=== PATIENT | male | born 1945 | race Caucasian/White ===

== ENCOUNTER → 2023-02-22 09:05 | Outpatient (BNVA) | payer OTHER, SELFPAY | PROVIDERS: PCP Internal Medicine; Visit Provider Nurse Practitioner Family | DX: Z13.89 Encounter for screening for other disorder (principal) ==

== ENCOUNTER 2024-01-10 11:43 | Outpatient (AMB) | payer OTHER, SELFPAY ==
--- NOTE | 2024-01-10 11:45 | MHC.OFFVIS ---
Intake Vital Signs 01/10/24 11:58 Height 6 ft 1 in Weight 184 lb 4 oz BMI 24.3 BP 112/64 Blood Pressure Location Rt brachial Position Sitting Pulse 97 Pulse Source Pulse Oximeter Pulse Oximetry (%) 74 L Oxygen Delivery Method Room Air Intake Visit Reasons: Follow up-Confirmed Intake Note: Patient presents for f/u. Last couple of weeks he has been off and has been falling often. more incontinence. more forgetful and not aware whats going on Allergies No Known Allergies Allergy (Verified 01/10/24 11:51) HPI HPI Comments History of Present Illness Details 77 y/o male patient presents for follow up of dementia, seizure and ABDIRASHID on CPAP. Pt is accompanied by his son. Pt's son reports that patient was more confused lately. Pt moved to [facility] living in August, and his cognitive function has more declined since then. He got a phone call from [facility] living three weeks ago, and got a report patient was very confused, standing in the hallway with only boxer on. Pt's son noticed that he did not take his medication about 5 days. Pt also had frequent falls lately. He had ER visit last week because he fell and hit his head. CT results was no acute abnormalities. Urine test was normal. However, he is having urinary incontinence, and has urology appointment this week. Pt's son reports patient did not have breakthrough seizure. His last seizure was 15 years ago. He is on phenytonin 400 mg daily. Pt tried to have a repeat neuropsychology evaluation, but he was discharged due to non compliant for Dr's treatment. He is on memantine ER 28 mg daily, no side effect noted. Pt drinks couple of glasses of wine weekly, reduced smoking cigarettes. His last sleep study was in 2015. Repeat sleep study ordered but he did not have sleep study yet. Pt does not want to use CPAP. Pt's bilateral hands tremor is stable. [facility] Medical History Bladder cancer COPD (chronic obstructive pulmonary disease) Subdural hematoma Surgical History Hx of colonoscopy History of back surgery Hx of cardiac catheterization Hx of craniotomy Hx of tonsillectomy Family History Father [place] (myocardial infarction) Mother No problems noted. Social History (Updated 01/10/24 @ 11:57 by Lakisha Antunez [facility]) Household Members: Spouse Alcohol intake: former Patient Tobacco Use Status: Current everyday Tobacco user Review of Systems Const All systems reviewed & are unremarkable except as noted in HPI and below ENT Reports Normal hearing present Neuro Reports Normal hearing present Physical Exam Vital Signs: Last Vital Signs Pulse 97 01/10/24 11:58 BP 112/64 01/10/24 11:58 Pulse Ox 74 L 01/10/24 11:58 Oxygen Delivery Method Room Air 01/10/24 11:58 BMI result Body Mass Index 24.3 Const General: cooperative and no acute distress Nutritional Appearance: average body habitus Orientation/consciousness: patient oriented x3 Neck Neck: Yes full ROM and Yes supple Resp Effort & Inspection: normal respiratory effort, able to speak in complete sentences and Actively coughing Neuro General: patient oriented x3 and moves all extremities Cranial nerves: Yes Bilaterally intact EOM present, Yes Normal facial strength present, Yes Midline tongue present, Yes Symmetric palate elevation present, Yes Normal hearing present, Yes Ability to bilaterally rotate head present and Yes Ability to bilaterally elevate shoulders present Cognition (Neuro): normal cognition Gait exam (Neuro): Normal gait present (slightly stoop, good stride and steady gait. ) Motor exam (neuro): 5/5 motor strength present throughout, Pronator motor function not present and Other motor observations present (bilateral hands moderate action tremor. ) Psych Appearance: grossly normal Mental Status: mental status grossly normal Affect: normal affect Attitude: cooperative Assessment & Plan Assessment & Plan (1) Dementia: Comment: Vascular, mild to moderate Code(s): F03.90 - Unspecified dementia, unspecified severity, without behavioral disturbance, psychotic disturbance, mood disturbance, and anxiety (2) Frequent falls: Code(s): R29.6 - Repeated falls (3) Urinary incontinence: Code(s): R32 - Unspecified urinary incontinence (4) Seizure: Code(s): R56.9 - Unspecified convulsions Plan Continue to take memantine ER 28 mg daily for dementia. Continue phenytoin 400 mg q HS for seizure as patient experiences good clinical effect. Recent lab result requested from [facility]. Encouraged patient smoking cessation and reduce his daily alcohol consumption. Advised patient to undergo brain MRI to assess frequent falls, cognitive function decline and urinary incontinence. Orders: Orders MR head/brain wo con 01/10/24 F03.90 - Unspecified dementia, unspecified severity, without behavioral disturbance, psychotic disturbance, mood disturbance, and anxiety, R29.6 - Repeated falls, R32 - Unspecified urinary incontinence Coding Level of Care Code Est Pt Level 4 (06075) Diagnoses Dementia F03.90 Frequent falls R29.6 Urinary incontinence R32 Seizure R56.9
[2024-01-10 11:58] VITALS: BP 112/64; PULSE 97; O2SAT 74; BMI 24.3
== END 2024-01-10 12:30 | disposition home or self-care (01) ==
PROVIDERS: PCP Internal Medicine; Visit Provider Nurse Practitioner Family
DX: F03.90 Unspecified dementia, unspecified severity, without behavioral disturbance, psychotic disturbance, mood disturbance, and anxiety (principal); R29.6 Repeated falls; R32 Unspecified urinary incontinence; R56.9 Unspecified convulsions
CPT/HCPCS: 99214

== ENCOUNTER → 2024-01-10 11:43 | Outpatient (BNVA) | payer OTHER, SELFPAY | PROVIDERS: PCP Internal Medicine; Visit Provider Nurse Practitioner Family ==

== ENCOUNTER 2024-03-07 16:24 | Outpatient (REF) | payer OTHER, SELFPAY ==
--- NOTE | ~2024-03-07 | CT_ITS ---
EXAMINATION: CT head/brain wo IV con CLINICAL INFORMATION: Reason for Exam R29.6 - Repeated falls COMPARISON: None available TECHNIQUE: Contiguous axial imaging was performed from the skull base to vertex without intravenous contrast. Sagittal and coronal reformatted images were obtained. This CT examination was performed using dose optimization techniques as appropriate, variously including the following: * Automated exposure control * Adjustment of mA and/or kV according to patient size (this includes techniques or standardized protocols for targeted exams where dose is matched to indication/reason for exam; i.e. extremities or head) Use of iterative reconstruction technique DLP: 948 mGy-cm FINDINGS: Prior left parietal craniotomy with underlying encephalomalacia/gliosis in the left anterior temporal lobe. Surgical/aneurysm clips are noted. There is ex vacuo dilatation of the left lateral ventricle temporal horn. Encephalomalacia/gliosis in the left parietal/occipital lobes. No acute intracranial hemorrhage or territorial loss of roy-white differentiation. Generalized cerebral volume loss with associated ventricular and sulcal prominence. Confluent periventricular and subcortical white matter hypodensity is nonspecific but may represent severe chronic microvascular ischemic change. Scattered mild to moderate ethmoid air cell mucosal thickening. The mastoid air cells are well-aerated. CT/CT head/brain wo IV con IMPRESSION: Left-sided craniotomy with underlying encephalomalacia/gliosis in the left anterior temporal lobe. 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 Extensive white matter hypodensity is nonspecific and may represent severe chronic microvascular ischemic change. No acute intracranial hemorrhage or territorial loss of roy-white differentiation.
== END 2024-03-07 16:25 | disposition home or self-care (01) ==
LOC: HO.CT 16:24
PROVIDERS: PCP Internal Medicine; Visit Provider Nurse Practitioner Family
DX: R29.6 Repeated falls (principal); R32 Unspecified urinary incontinence; F03.90 Unspecified dementia, unspecified severity, without behavioral disturbance, psychotic disturbance, mood disturbance, and anxiety
CPT/HCPCS: 70450

== ENCOUNTER 2024-03-13 10:05 | Outpatient (AMB) | payer OTHER, SELFPAY ==
--- NOTE | 2024-03-13 10:10 | A.OFFVIS_ITS ---
Vital Signs 03/13/24 10:20 Height 6 ft 1 in Weight 181 lb 8 oz BMI 23.9 BP 122/74 Blood Pressure Location Rt brachial Position Sitting Pulse 67 Pulse Source Pulse Oximeter Pulse Oximetry (%) 97 Oxygen Delivery Method Room Air Intake Visit Reasons: 2 month FU - Confirmed Intake Note: Patient presents for 2 months f/u. A lot more confusion since UTI for about a month and a lot more incontinence. Allergies No Known Allergies Allergy (Verified 03/13/24 10:17) HPI Comments Details: 78 y/o male patient presents for follow up of dementia, seizure and ABDIRASHID on CPAP. Pt is accompanied by his son. CT result reviewed. Left-sided craniotomy with underlying encephalomalacia/gliosis in the left anterior temporal lobe. 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 Extensive white matter hypodensity is nonspecific and may represent severe chronic microvascular ischemic change. No acute intracranial hemorrhage or territorial loss of roy-white differentiation. Pt had UTI in January, After finished ABT, he was more confused, and went to ER for three days and discharged to [facility] rehab. He was wondering the facility and moved to dementia unit. His memory has more declined after UTI. He does not use CPAP. The CPAP was too old to use it. Pt's son not sure he will do repeat sleep study or not. No falls since the last visit. Walking and gait is better. He was wondering in the facility at night occasionally, happened couple of times. He is on memantine 28 mg daily and seroquel 50 mg qHS. He does not smoke anymore. Stopped drinking alcohol. [facility] Medical History Bladder cancer COPD (chronic obstructive pulmonary disease) Subdural hematoma Surgical History Hx of colonoscopy History of back surgery Hx of cardiac catheterization Hx of craniotomy Hx of tonsillectomy Family History Father [place] (myocardial infarction) Mother No problems noted. Social History (Updated 03/13/24 @ 10:20 by Lakisha Antunez CMA) Household Members: Spouse Alcohol intake: former Patient Tobacco Use Status: Former Tobacco user Review of Systems Const All systems reviewed & are unremarkable except as noted in HPI and below ENT Reports Normal hearing present Neuro Reports Normal hearing present Physical Exam Vital Signs: Last Vital Signs Pulse 67 03/13/24 10:20 BP 122/74 03/13/24 10:20 Pulse Ox 97 03/13/24 10:20 Oxygen Delivery Method Room Air 03/13/24 10:20 BMI result Body Mass Index 23.9 Const General: cooperative and no acute distress Nutritional Appearance: average body habitus Orientation/consciousness: patient oriented x3 Neck Neck: Yes full ROM and Yes supple Resp Effort & Inspection: normal respiratory effort, able to speak in complete sentences and Actively coughing Neuro General: patient oriented x3 and moves all extremities Cranial nerves: Yes Bilaterally intact EOM present, Yes Normal facial strength present, Yes Midline tongue present, Yes Symmetric palate elevation present, Yes Normal hearing present, Yes Ability to bilaterally rotate head present and Yes Ability to bilaterally elevate shoulders present Cognition (Neuro): normal cognition Gait exam (Neuro): Normal gait present (slightly stoop, good stride and steady gait. ) Motor exam (neuro): 5/5 motor strength present throughout, Pronator motor function not present and Other motor observations present (bilateral hands moderate action tremor. ) Psych Appearance: grossly normal Mental Status: mental status grossly normal Affect: normal affect Attitude: cooperative Assessment & Plan Assessment & Plan (1) Dementia: Comment: Vascular, mild to moderate Code(s): F03.90 - Unspecified dementia, unspecified severity, without behavioral disturbance, psychotic disturbance, mood disturbance, and anxiety Category: Medical (2) Frequent falls: Code(s): R29.6 - Repeated falls Category: Medical (3) Urinary incontinence: Code(s): R32 - Unspecified urinary incontinence Category: Medical (4) Seizure: Code(s): R56.9 - Unspecified convulsions Category: Medical Plan Continue to take memantine ER 28 mg daily for dementia. Continue phenytoin 400 mg q HS for seizure as patient experiences good clinical effect. Advised patient to try melatonin 3 mg qHS. Medications: New melatonin 3 mg PO BEDTIME 30 tabs 6RF sleep 30 days Coding Level of Care Code Est Pt Level 4 (75248) Diagnoses Dementia F03.90 Frequent falls R29.6 Urinary incontinence R32 Seizure R56.9
[2024-03-13 10:20] VITALS: BP 122/74; PULSE 67; O2SAT 97; BMI 23.9
== END 2024-03-13 10:59 | disposition home or self-care (01) ==
PROVIDERS: PCP Internal Medicine; Visit Provider Nurse Practitioner Family
DX: F03.90 Unspecified dementia, unspecified severity, without behavioral disturbance, psychotic disturbance, mood disturbance, and anxiety (principal); R29.6 Repeated falls; R32 Unspecified urinary incontinence; R56.9 Unspecified convulsions
CPT/HCPCS: 99214

== ENCOUNTER → 2024-03-13 10:05 | Outpatient (BNVA) | payer OTHER, SELFPAY | PROVIDERS: PCP Internal Medicine; Visit Provider Nurse Practitioner Family ==

== ENCOUNTER 2024-09-16 11:01 | Outpatient (AMB) | payer OTHER, SELFPAY ==
--- NOTE | 2024-09-16 10:50 | MHC.OFFVIS ---
Vital Signs 09/16/24 10:53 Height 6 ft 1 in Weight 199 lb 6 oz BMI 26.3 BP 134/60 Blood Pressure Location Rt brachial Position Sitting Intake Visit Reasons: 6 month F/U Intake Note: Patient presents for a 6 mo fu for Dementia. Hospice [facility] Required: No Accompanied by: Son Allergies No Known Allergies Allergy (Verified 09/16/24 10:55) Medication List - Last Reconciled 09/16/24 by Maria Del Carmen Montes MD aspirin 81 mg PO DAILY atorvastatin 80 mg PO DAILY cyanocobalamin (vitamin B-12) 1,000 mcg PO DAILY 90 days folic acid 1 mg PO DAILY lisinopril 20 mg PO DAILY melatonin 3 mg PO BEDTIME 30 days memantine 28 mg PO DAILY 90 days metoprolol succinate ER 25 mg PO DAILY metoprolol succinate ER 50 mg PO DAILY multivitamin 1 tab PO DAILY phenytoin sodium extended 400 mg (4 x 100 mg) PO BEDTIME 90 days quetiapine 25 mg PO BEDTIME tamsulosin 0.4 mg PO DAILY trazodone 50 mg PO BEDTIME venlafaxine ER 300 mg PO DAILY HPI Comments Details: 79 y/o male patient presents for follow up of dementia, seizure and ABDIRASHID on CPAP. Pt is accompanied by his son. He had worsening of cognition when he UTI 6 mths ago but he has improved since then He lives in an Assisted Living facility in [place]. He used to use CPAP. He has 2-[address] result reviewed. Left-sided craniotomy with underlying encephalomalacia/gliosis in the left anterior temporal lobe. 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 Extensive white matter hypodensity is nonspecific and may represent severe chronic microvascular ischemic change. No acute intracranial hemorrhage or territorial loss of roy-white differentiation. He is on memantine 28 mg daily and seroquel 25 mg qHS. He does not smoke anymore. Stopped drinking alcohol. [facility] Medical History (Updated 09/16/24 @ 11:21 by Maria Del Carmen Montes MD) Obstructive sleep apnea of adult Hypersomnia Snoring Subdural hematoma Bladder cancer COPD (chronic obstructive pulmonary disease) Surgical History Hx of colonoscopy History of back surgery Hx of cardiac catheterization Hx of craniotomy Hx of tonsillectomy Family History Father [place] (myocardial infarction) Mother No problems noted. Social History Household Members: Spouse Alcohol intake: former Patient Tobacco Use Status: Former Tobacco user Review of Systems ENT Reports Normal hearing present Neuro Reports Normal hearing present Physical Exam Vital Signs: Last Vital Signs BP 134/60 09/16/24 10:53 BMI result Body Mass Index 26.3 Const General: cooperative and no acute distress Nutritional Appearance: average body habitus Orientation/consciousness: patient oriented x3 Neck Neck: Yes full ROM and Yes supple Resp Effort & Inspection: normal respiratory effort, able to speak in complete sentences and Actively coughing Neuro Other: gait- off balance - mild involuntary movements in distal UE General: patient oriented x3 and moves all extremities Cranial nerves: Yes Bilaterally intact EOM present, Yes Normal facial strength present, Yes Midline tongue present, Yes Symmetric palate elevation present, Yes Normal hearing present, Yes Ability to bilaterally rotate head present and Yes Ability to bilaterally elevate shoulders present Cognition (Neuro): normal cognition Gait exam (Neuro): Normal gait present (slightly stoop, good stride and steady gait. ) Motor exam (neuro): 5/5 motor strength present throughout, Pronator motor function not present and Other motor observations present (bilateral hands moderate action tremor. ) Psych Appearance: grossly normal Mental Status: mental status grossly normal Affect: normal affect Attitude: cooperative Assessment & Plan Assessment & Plan (1) Dementia: Comment: Vascular, mild to moderate Code(s): F03.90 - Unspecified dementia, unspecified severity, without behavioral disturbance, psychotic disturbance, mood disturbance, and anxiety Category: Medical Qualifiers: Dementia type: vascular dementia Dementia behavioral or psychological symptom: without behavioral, psychotic, or mood disturbance or anxiety Dementia severity: mild Qualified Code(s): F01.A0 - Vascular dementia, mild, without behavioral disturbance, psychotic disturbance, mood disturbance, and anxiety (2) Frequent falls: Code(s): R29.6 - Repeated falls Category: Medical (3) Seizure: Code(s): R56.9 - Unspecified convulsions Category: Medical (4) Obstructive sleep apnea of adult: Code(s): G47.33 - Obstructive sleep apnea (adult) (pediatric) Category: Medical Plan: not on CPAP Plan Continue to take memantine ER 28 mg daily for dementia. Continue phenytoin 400 mg q HS for seizure as patient experiences good clinical effect. Advised patient to try melatonin 3 mg qHS. repeat sleep study for snoring and hypersomnia Home PT Orders: Orders RT home sleep study Today G47.10 - Hypersomnia, unspecified, R06.83 - Snoring [facility]errals [facility] Referral F01.A0 - Vascular dementia, mild, without behavioral disturbance, psychotic disturbance, mood disturbance, and anxiety, R29.6 - Repeated falls Coding Level of Care Code Est Pt Level 4 (61732) Complex EM visit Add On G2211 Diagnoses Mild vascular dementia without behavioral disturbance, psychotic disturbance, mood disturbance, or anxiety F01.A0 Dementia type: vascular dementia Dementia behavioral or psychological symptom: without behavioral, psychotic, or mood disturbance or anxiety Dementia severity: mild Frequent falls R29.6 Seizure R56.9 Obstructive sleep apnea of adult G47.33
[2024-09-16 10:53] VITALS: BP 134/60; BMI 26.3
== END 2024-09-16 11:34 | disposition home or self-care (01) ==
LOC: HO.HSMS 11:01
PROVIDERS: PCP Internal Medicine; Visit Provider Psychiatry & Neurology Neurology
DX: F01.A0 Vascular dementia, mild, without behavioral disturbance, psychotic disturbance, mood disturbance, and anxiety (principal); R29.6 Repeated falls; R56.9 Unspecified convulsions; G47.33 Obstructive sleep apnea (adult) (pediatric)
CPT/HCPCS: 99214

== ENCOUNTER → 2024-09-16 11:01 | Outpatient (BNVA) | payer OTHER, SELFPAY | PROVIDERS: PCP Internal Medicine; Visit Provider Psychiatry & Neurology Neurology ==

== ENCOUNTER → 2025-01-08 10:04 | Outpatient (REF) | payer MEDICARE, SELFPAY ==
--- OUTSIDE RECORDS SUMMARY | 2025-01-08 10:33 | XMS_ITS | Clinical Summary ---
Author Organization [facility] mention Address [address] [place] [address] Phone Care Team Providers Care Respiratory Therapist Assistant Name Role Phone Marek Polanco MD Primary Care Provider [phone] Allergies No known active allergies Medications melatonin 3 mg tablet Take 1 tablet (3 mg total) by mouth at bedtime. Active QUEtiapine (SEROquel) 50 mg tablet Take 1 tablet (50 mg total) by mouth at bedtime. 05/13/2024 Active memantine (NAMENDA XR) 28 mg extended release capsule Take 1 capsule (28 mg total) by mouth 1 (one) time each day. 12/15/2020 Active aspirin 81 mg EC tablet Take 1 tablet (81 mg total) by mouth 1 (one) time each day. 05/13/2024 Active phenytoin (DILANTIN) 100 mg ER capsule Take 4 capsules (400 mg total) by mouth. 10/01/2015 Active metoprolol succinate (TOPROL-XL) 25 mg 24 hr tablet TAKE 1 TABLET BY MOUTH DAILY IN ADDITION TO THE 50MG TABLET FOR A TOTAL DAILY DOSE OF 75MG IN THE EVENING 28 tablet 10/16/2024 Active metoprolol succinate (TOPROL-XL) 50 mg 24 hr tablet TAKE 1 TABLET BY MOUTH DAILY IN ADDITION TO THE 25MG TABLET FOR A TOTAL DAILY DOSE OF 75MG IN THE EVENING 28 tablet 10/16/2024 Active multivitamin tablet TAKE 1 TABLET BY MOUTH DAILY. 28 tablet 5 10/16/2024 Active atorvastatin (LIPITOR) 80 mg tablet TAKE 1 TABLET BY MOUTH DAILY AT BEDTIME 90 tablet 11/11/2024 Active lisinopriL (PRINIVIL,ZESTR IL) 20 mg tablet TAKE 1 TABLET BY MOUTH DAILY. 90 tablet 11/11/2024 Active folic acid (FOLVITE) 1 mg tablet TAKE 1 TABLET BY MOUTH DAILY. 90 tablet 11/11/2024 Active melatonin 5 mg tablet TAKE 1 TABLET BY MOUTH DAILY EVERY EVENING. 90 tablet 11/11/2024 Active tamsulosin (FLOMAX) 0.4 mg 24 hr capsule TAKE 2 CAPSULES BY MOUTH ONCE DAILY AT BEDTIME. TAKE 30 MINUTES AFTER THE SAME MEAL EVERY DAY. 180 capsule 11/11/2024 Active venlafaxine HCl (VENLAFAXINE ORAL) Take by mouth. 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 08/15/2017 Urge incontinence 07/10/2017 ABDIRASHID (obstructive sleep apnea) 12/20/2016 Major depressive disorder, recurrent episode, mi ld 06/09/2016 AICD (automatic cardioverter/defibrillator) pres ent 10/31/2015 Ventricular tachyarrhythmia 10/20/2015 Multiple thyroid nodules 12/03/2014 Tracheal nodule 12/03/2014 Overview (10/08/2024): 6 mm subglottic polypoid lesion seen on 10/2014 CT scan - will follow with 6 month scan Hyperlipidemia 12/01/2014 Vitamin D deficiency 12/01/2014 Pulmonary nodules 11/21/2014 AVM (arteriovenous malformation) brain 4 Overview (10/08/2024): Left temporal, repaired by craniotomy 1992 Old GA (myocardial infarction) 11/03/2014 Overview (10/08/2024): S/p LAD stenting 2003 Hypertension 11/03/2014 Overview (10/08/2024): Dr. Underwood Seizure disorder 11/03/2014 Overview (10/08/2024): S/p craniotomy; twice tried to wean off dilantin but not successful Managed by PCP after several years. PTSD (post-traumatic stress disorder) 11/03/2014 Overview (10/08/2024): Venlafaxine, Seroquel for sleep (staying asleep) Encounters Date Type Department Care Team Description 01/01/2025 2:00 PM EST Ancillary Procedure [facility] [address] [facility] [address] [place] [address] Encounter for adjustment or management of cardiac device 12/31/2024 Telephone [facility] - [facility] [address] [facility] [address] [place] [address] Marcio Coronado MD 12/31/2024 Telephone [facility] - [address] [facility] [address] [place] [address] Marcio Coronado MD 11/21/2024 9:15 AM EST Office Visit [facility] [address] [place] [address] Marek Polanco MD Major depressive disorder, recurrent episode, mild (CMS/HCC) (Primary Dx); Primary hypertension; Pure hypercholesterolemia from Last 3 Months Immunizations Name Administration Dates Next Due COVID-19 (Moderna/Spikevax) 12yo and older 09/14/2023 Influenza trivalent, 0.5mL ( Fluad) 65yo and older 08/24/2023,10/25/2019,09/21/2018,08/15,09/27/2016 Influenza trivalent, 0.5mL, preservative free (Fluarix; FluLaval; Fluzone) ages 6mo and older (Afluria) 3 years and older 08/17/2015,09/20/2014 Influenza, Unspecified 08/23/2022,11/09/2021 Moderna SARS-CoV-2 COVID-19, mRNA, LNP-S, preservative free 10/07/2021,12/31/2020 Pfizer SARS-CoV-2 COVID-19, mRNA, LNP-S, preservative free 08/23/2022 Pneumococcal conjugate 13 va lent (Prevnar 13, PCV13) 2mo and older 12/16/2020,11/10/2015 Pneumococcal polysaccharide 23 valent (Pneumovax 23) 2yo and older 09/12/2012 Tdap Tetanus diptheria acell ular pertussis (Boostrix; Adacel) 7yo and older 10/20/2014 Surgical History Surgery Date Site/Laterality Comments OTHER SURGICAL HISTORY 11/20/1992 PROCEDURE: AL CRANIOT TEMPORAL LOBE W/O ELECTROCORTICOGRAPHY; COMMENT: arteriovenous malformation OTHER SURGICAL HISTORY 2002 PROCEDURE: LEFT HEART CATHETERIZATION; COMMENT: LAD stent TONSILLECTOMY PROCEDURE: HISTORICAL TONSILLECTOMY BACK SURGERY PROCEDURE: HISTORICAL BACK SURGERY COLONOSCOPY 2004 PROCEDURE: HISTORICAL COLONOSCOPY COLONOSCOPY April 2015 PROCEDURE: HISTORICAL COLONOSCOPY; COMMENT: 5 polyps removed, diverticulosis, internal and external hemorrhoids Medical History Medical History Date Comments Depression 12/01/2014 DX:Depression Hyperlipidemia 12/01/2014 DX:Hyperlipidemi a History of malignant melanoma 12/01/2014 DX :History of malignant melanoma Vitamin D deficiency 12/01/2014 DX:Vitamin D deficiency COPD (chronic obstructive pu lmonary disease) (CMS/HCC) 12/01/2014 DX:COPD (chronic obstructive pulmonary disease) (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) History of CVA (cerebrovascu lar accident) 11/10/2015 DX:History of CVA (cerebrova scular accident) ABDIRASHID (obstructive sleep apnea) 12/20/2016 DX :ABDIRASHID (obstructive sleep apnea) Seizure disorder (CMS/HCC) 11/03/2014 DX:Se izure disorder ([facility]); COMMENT: S/p craniotomy; twice tried to wean off dilantin but not successful Managed by PCP after several years. Family History Medical History Relation Name Comments Heart attack Father in 80s Relation Name Status Comments Brother Father Mother Sister Alive Social History Tobacco Use Types Packs/Day Years Used Date Smoking Tobacco: Every Day Cigarettes 0.5 60.1 Started: [birth year]/20/1964 Smokeless Tobacco: Never Tobacco Cessation:Ready to Q uit: Not Asked; Counseling Given: Not Answered Alcohol Use Standard Drinks/Week Comments Yes 0 (1 standard drink = 0.6 oz pur e alcohol) Sex and Gender Information Value Date Recorded Sex Assigned at Not on file Legal Sex Male 5:03 PM EST Gender Identity Not on file Sexual Orientation Not on file Obstetrics History Last Filed Vital Signs Vital Sign Reading Time Taken Comments Blood Pressure 109/54 11/21/2024 9:32 AM EST Pulse 65 11/21/2024 9:32 AM EST auto cuff Temperature - - Respiratory Rate - - Oxygen Saturation - - Inhaled Oxygen Concentration - - Weight 92.5 kg (204 lb) 11/21/2024 9:32 AM EST Height 185.4 cm (6' 1 ) 02/23/2024 11:39 AM EDT Body Mass Index 26.91 02/23/2024 11:39 AM EDT Plan of Treatment Upcoming Encounters Date Type Department Care Team (Late st Contact Info) Description 05/21/2025 9:45 AM EDT Office Visit Internal Medicine - [address] [address] Marek Polanco MD [address] [place] [phone] 01/06/2026 10:30 AM EST Ancillary Procedure [facility] [address] [facility] [address] [place] [phone] Health Maintenance Due Date Last Done Comments Zoster Vaccines (1 of 2) 1965 RSV Immunization Patients 60+ Years Old (1 - 1-dose 75+ series) 2021 Colorectal Cancer Screening: Colonoscopy 10/29/2022 04/25/2015 Hepatitis C Screening 10/29/2022 Social Influencers of Health Screening 10/29/2022 Lung Cancer Screening (Low Dose CT) 05/05/2023 05/05/2022, 05/03/2021 COVID-19 Vaccine ( season) 2024 09/14/2023, 08/23/2022, 03/30/2022, Additional history exists Influenza Vaccine (#1) 2024 , 08/23/2022, 11/09/2021, Additional history exists DTaP,Tdap,and Td Vaccines (2 - Td or Tdap) 10/20/2024 10/20/2014 Depression Screening 02/22/2025 02/23/2024 Falls Risk Assessment 02/22/2025 02/23/2024 Medicare Annual Wellness Visit 02/22/2025 02/23/2024 Hypertension/CHF/CAD Annual BMP Blood Test 11/21/2025 11/21/2024 Cholesterol Screening (Lipid Panel) 11/21/2029 11/21/2024, 02/23/2024 Pneumococcal Vaccine: 50+ Years Completed 12/16/2020, 11/10/2015, 09/12/2012 HIB Vaccines Aged Out No longer eligi ble based on patient's age to complete this topic HPV Vaccines Aged Out No longer eligi ble based on patient's age to complete this topic Hepatitis A Vaccines Aged Out No long er eligible based on patient's age to complete this topic Hepatitis B Vaccines Aged Out No long er eligible based on patient's age to complete this topic IPV Vaccines Aged Out No longer eligi ble based on patient's age to complete this topic MMR Vaccines Aged Out No longer eligi ble based on patient's age to complete this topic Meningococcal ACWY Vaccine Aged Out N o longer eligible based on patient's age to complete this topic Meningococcal B Vacine Aged Out No lo nger eligible based on patient's age to complete this topic RSV Immunization Patients Under 20 months Aged Out No longer eligible based on patient's age to complete this topic Varicella Vaccines Aged Out No longer eligible based on patient's age to complete this topic Medical Devices Implanted Type Area Pump Tender Device Identifier Shelf Expiration Date Model / Serial / Lot Miguelina Stewart 7 Vr-T Dx [id number] Implanted:10/2015 by Marcio Coronado MD (Quantity not on file) Cardiac ICD Left: Chest [employer] ITREVIA 7 VR-T DX / [id number] / Procedures Procedure Name Priority Date/Time Associated Diagnosis Comments ALANINE AMINOTRANSFERASE Routine 025 10:15 AM EST Primary hypertension ASPARTATE AMINOTRANSFERASE Routine 11/21/2024 10:15 AM EST Primary hypertension BASIC METABOLIC PANEL Routine 11/21/2024 10:15 AM EST Primary hypertension LIPID PANEL WITH REFLEX TO DIRECT LDL Routine 11/21/2024 10:15 AM EST Primary hypertension DEPRESSION SCREENING Routine 02/23/2024 FALLS RISK ASSESSMENT Routine 02/23/2024 CT LUNG SCREENING LOW DOSE Routine 05/05/2022 4:00 PM EDT Personal history of nicotine dependence COLONOSCOPY Routine 04/25/2015 from Last 3 Months or Most Recently Relevant to Health Maintenance Results * Lipid panel with reflex to direct LDL (11/21/2024 10:15 AM EST) Cholesterol 139 0 - 200 mg/dL LAB CHEMISTRY METHOD 11/21/2024 3:[address] [facility] Triglycerides 97 0 - 150 mg/dL LAB CHEMISTRY METHOD 11/21/2024 3:[address] [facility] HDL 60 >=40 mg/dL LAB CHEMISTRY METHOD 11/21/2024 3:[address] [facility] LDL Calculated 60 0 - 100 mg/dL LAB CHEMISTRY METHOD 11/21/2024 3:[address] [facility] VLDL Cholesterol Sawyer 19.4 mg/dL LAB CHEMISTRY METHOD 11/21/2024 3:[address] [facility] Non HDL Chol. (LDL+VLDL) 79 <145 mg/dL LAB CHEMISTRY METHOD 11/21/2024 3:[address] [facility] Chol/HDL Ratio 2.3 0.0 - 4.4 LAB CHEMISTRY METHOD 11/21/2024 3:[address] [facility] Blood Venous blood specimen / Unknown Venipuncture / Unknown 11/21/2024 10:15 AM EST 11/21/2024 10:15 AM EST us Marek Polanco MD LAB BLOOD ORDERABLES Final Res ult Performing Organization Address [facility]/ZIP Co de Phone Number [facility] [address] [place] [address], * Alanine aminotransferase (11/21/2024 10:15 AM EST) ALT (SGPT) 28 10 - 60 unit/L LAB CHEMISTRY METHOD 11/21/2024 3:[address] [facility] Blood Venous blood specimen / Unknown Venipuncture / Unknown 11/21/2024 10:15 AM EST 11/21/2024 10:15 AM EST us Marek Polanco MD LAB BLOOD ORDERABLES Final Res ult Performing Organization Address City/[facility]/ZIP Co de Phone Number [facility] [address] [place] [address], [place] [phone] * Aspartate aminotransferase (11/21/2024 10:15 AM EST) AST (SGOT) 20 10 - 42 unit/L LAB CHEMISTRY METHOD 11/21/2024 3:[address] [facility] Blood Venous blood specimen / Unknown Venipuncture / Unknown 11/21/2024 10:15 AM EST 11/21/2024 10:15 AM EST us Marek Polanco MD LAB BLOOD ORDERABLES Final Res ult [facility] [address] [place] [address], [place] [phone] * (ABNORMAL) Basic metabolic panel (11/21/2024 10:15 AM EST) Sodium 143 133 - 145 mmol/L LAB CHEMISTRY METHOD 11/21/2024 3:[address] [facility] Potassium 4.2 3.5 - 5.5 mmol/L LAB CHEMISTRY METHOD 11/21/2024 3:[address] [facility] Chloride 109 96 - 110 mmol/L LAB CHEMISTRY METHOD 11/21/2024 3:[address] [facility] CO2 30 21 - 32 mmol/L LAB CHEMISTRY METHOD 11/21/2024 3:[address] [facility] Anion Gap 4 3 - 11 LAB CHEMISTRY METHOD 11/21/2024 3:[address] [facility] Glucose 116(H) 70 - 100 mg/dL LAB CHEMISTRY METHOD 11/21/2024 3:[address] [facility] BUN 18 5 - 25 mg/dL LAB CHEMISTRY METHOD 11/21/2024 3:[address] [facility] Creatinine 0.74 0.70 - 1.30 mg/dL LAB CHEMISTRY METHOD 11/21/2024 3:[address] [facility] eGFR 93 >=60 mL/min/1. 73m2 LAB CHEMISTRY METHOD 11/21/2024 3:[address] [facility] Comment:Calculation based on the??Chronic Kidney Disease Epidemiology Collaboration (CKD-EPI) equation refit??without adjustment for race. BUN/Creatinine Ratio 24.3 LAB CHEMISTRY METHOD 11/21/2024 3:[address] [facility] Calcium 9.2 8.5 - 10.5 mg/dL LAB CHEMISTRY METHOD 11/21/2024 3:[address] [facility] Blood Venous blood specimen / Unknown Venipuncture / Unknown 11/21/2024 10:15 AM EST 11/21/2024 10:15 AM EST us Marek Polanco MD LAB BLOOD ORDERABLES Final Res ult [facility] [address] [place] [address], [place] [phone] * Falls Risk Assessment (02/23/2024) Falls Risk Assessment Abstrated Historical Provider HEALTH MAINTENANCE Final Result * Depression Screening (02/23/2024) Depression Screening Abstrated Historical Provider HEALTH MAINTENANCE Final Result * CT LUNG SCREENING LOW DOSE (05/05/2022 4:00 PM EDT) Anatomical Region Laterality Modality Computed Tomogra phy 05/05/2022 2:36 PM EDT Narrative 05/05/2022 4:00 PM EDT [facility] Diagnostic Imaging Department [address] [place] [address] [id number] Patient: ??STEPHANIE BELTRAN ?/Age/Sex: 1945 - 76 - M Unit#: ??[id number] ? Location/Status: ??SPDICATLS/REG CLI ? Mnemonic/Ordering Site: ??CTLUNGLD/SPCT Ordering Physician: ??MOLLY SOARES MD CT Lung Screening Low Dose - 05/05/22 - 1506 HISTORY: Current smoker, 84 pack year total, urinary bladder carcinoma. COMMENTS: Noncontrast Chest CT examination includes axial imaging from the lung apices through the hemidiaphragms supplemented with coronal and sagittal reformatted images utilizing low-dose screening technique (JumpIn, 1.5 DLP (mGy-cm), CT utilizing dose reduction technique with automated exposure control based on patient size or use of iterative reconstruction technique). Direct comparison to noncontrast Chest CT examination: 11/30/2015 (outside institution). Direct comparison to low-dose screening Chest CT examinations: 04/30/2020, 05/01/2021 Single-lead left subclavian cardiac pacemaker/implantable defibrillator. Thyroid gland heterogeneous nodular morphology and mild parenchymal calcification. Cardiac size within normal limits. ??Three-vessel coronary artery atherosclerotic calcification. Ascending thoracic aorta ectasia (4 cm caliber). No gross interval developing thoracic lymphadenopathy by noncontrast CT analysis. No pneumothorax. ??No pleural effusion. ??No interval developing pericardial effusion; similar left-sided pericardial fluid/thickening. Scattered overall mild bilateral bronchiectasis, pulmonary parenchymal scarring in the setting of emphysematous disease. Essentially similar noncalcified 6 mm solid nodule in subpleural aspect of the lateral segment right middle lobe (series 4 image 173). Essentially similar up to approximately 8mm solid nodule in the lateral basilar segment of the right lower lobe (series 4 image 213). Thoracic dextroscoliosis and nonspecific multilevel thoracic endplate bridging osteophyte/enthesopathy perhaps secondary to underlying seronegative spondyloarthropathy. IMPRESSION: Emphysematous disease and nonspecific right middle lobe/right lower lobe subcentimeter nodules by low-dose screening CT analysis; similar when compared to studies as discussed above. [id number] [id number] [id number] Lung RADS: Category [address] CT Telerad Dictating Physician: ??GINGER GONZALEZ DO Electronically Signed by: ??GINGER GONZALEZ DO Dic Date/Time: ??05/05/22 1549 Sign date/Time: ??05/05/22 1600 Procedure Note Ginger Gonzalez, DO - 11/09/2022 [facility] Diagnostic Imaging Department [address] [place] [address] Patient: STEPHANIE BELTRAN Renea JonesB./Age/Sex: 1945 - 76 - M Unit#: [id number] [facility] Mnemonic/Ordering Site: [facility] Ordering Physician: MOLLY SOARES MD CT Lung Screening Low Dose - 05/05/22 - 2396 HISTORY: Current smoker, 84 pack year total, urinary bladder carcinoma. COMMENTS: Noncontrast Chest CT examination includes axial imaging from the lungapices through the hemidiaphragms supplemented with coronal and sagittalreformatted images utilizing low-dose screening technique (GE, 1.5 DLP (mGy-cm), CT utilizing dose reduction technique with automated exposure control basedon patient size or use of iterative reconstruction technique). Direct comparison to noncontrast Chest CT examination: 11/30/2015(outside institution). Direct comparison to low-dose screening Chest CT examinations:04/30/2020, 05/01/2021 Single-lead left subclavian cardiac pacemaker/implantable defibrillator. Thyroid gland heterogeneous nodular morphology and mild parenchymal calcification. Cardiac size within normal limits. Three-vessel coronary artery atherosclerotic calcification. Ascending thoracic aorta ectasia (4 cm caliber). No gross interval developing thoracic lymphadenopathy by noncontrast CT analysis. No pneumothorax. No pleural effusion. No interval developingpericardial effusion; similar left-sided pericardial fluid/thickening. Scattered overall mild bilateral bronchiectasis, pulmonary parenchymalscarring in the setting of emphysematous disease. Essentially similar noncalcified 6 mm solid nodule in subpleural aspect ofthe lateral segment right middle lobe (series 4 image 173). Essentially similar up to approximately 8mm solid nodule in the lateralbasilar segment of the right lower lobe (series 4 image 213). Thoracic dextroscoliosis and nonspecific multilevel thoracic endplatebridging osteophyte/enthesopathy perhaps secondary to underlying seronegative spondyloarthropathy. IMPRESSION: Emphysematous disease and nonspecific right middle lobe/right lower lobe subcentimeter nodules by low-dose screening CT analysis; similar whencompared to studies as discussed above. [id number] [id number] [id number] [id number] Lung RADS: Category [address] CT Telerad Dictating Physician: GINGER GONZALEZ DO Electronically Signed by: GINGER GONZALEZ DO Dic Date/Time: 05/05/22 1549 Sign date/Time: 05/05/22 1600 Molly Soares MD [facility] PROCEDURES Final Result * Colonoscopy (04/25/2015) Colonoscopy No Interpretatio n, Abstrated Anatomical Region Laterality Modality Other Historical Provider HEALTH MAINTENANCE Final Result from Last 3 Months or Most Recently Relevant to Health Maintenance Insurance [employer] Advance Directives Documents on File Type Date Recorded Patient General Production Worker Expl anation Health Care Decision (hx) 12/08/2017 AD TELLO DIRECTIVE Health Care Decision (hx) 12/08/2017 AD TELLO DIRECTIVE Health Care Decision (hx) 12/08/2017 AD TELLO DIRECTIVE Health Care Decision (hx) 12/08/2017 AD TELLO DIRECTIVE Health Care Decision (hx) 12/08/2017 AD TELLO DIRECTIVE Health Care Decision (hx) 12/08/2017 AD TELLO DIRECTIVE Health Care Decision (hx) 12/08/2017 AD TELLO DIRECTIVE Health Care Decision (hx) 12/08/2017 AD TELLO DIRECTIVE Health Care Decision (hx) 12/08/2017 AD TELLO DIRECTIVE Health Care Decision (hx) 12/08/2017 AD TELLO DIRECTIVE Health Care Decision (hx) 12/08/2017 AD TELLO DIRECTIVE Health Care Decision (hx) 11/08/2017 AD TELLO DIRECTIVE Health Care Decision (hx) 11/08/2017 AD TELLO DIRECTIVE Health Care Decision (hx) 11/08/2017 AD TELLO DIRECTIVE Health Care Decision (hx) 11/08/2017 AD TELLO DIRECTIVE Health Care Decision (hx) 11/08/2017 AD TELLO DIRECTIVE Health Care Decision (hx) 11/08/2017 AD TELLO DIRECTIVE Health Care Decision (hx) 11/08/2017 AD TELLO DIRECTIVE Health Care Decision (hx) 11/08/2017 AD TELLO DIRECTIVE Health Care Decision (hx) 11/08/2017 AD TELLO DIRECTIVE Health Care Decision (hx) 11/08/2017 AD TELLO DIRECTIVE Health Care Decision (hx) 11/08/2017 AD TELLO DIRECTIVE Health Care Decision (hx) 11/07/2017 AD TELLO DIRECTIVE Health Care Decision (hx) 11/07/2017 AD TELLO DIRECTIVE Health Care Decision (hx) 11/07/2017 AD TELLO DIRECTIVE Health Care Decision (hx) 11/07/2017 AD TELLO DIRECTIVE Health Care Decision (hx) 11/07/2017 AD TELLO DIRECTIVE Health Care Decision (hx) 11/07/2017 AD TELLO DIRECTIVE Health Care Decision (hx) 11/07/2017 AD TELLO DIRECTIVE Health Care Decision (hx) 11/07/2017 AD TELLO DIRECTIVE Health Care Decision (hx) 11/07/2017 AD TELLO DIRECTIVE Health Care Decision (hx) 11/07/2017 AD TELLO DIRECTIVE Health Care Decision (hx) 11/07/2017 AD TELLO DIRECTIVE Care Teams Respiratory Therapist Assistant Relationship Specialty Start Date End Date Marek Polanco MD [address] [place] [phone] PCP - General Internal Medicine 09/18/24
--- OUTSIDE RECORDS SUMMARY | 2025-01-08 10:33 | XMS_ITS | Encounter Summary ---
Author Organization [facility] Address [address] [place] [address] Care Team Providers Care Criminal Defense Attorney Name Role Phone Marek Polanco MD Primary Care Provider Encounter Details Date Type Department Care Team (Late Contact Info) Description 12/31/2024 Telephone [facility] - [facility] [address] [facility] [address] [place] [address] Marcio Coronado MD [address] [place] [address] Social History Tobacco Use Types Packs/Day Years Used Date Smoking Tobacco: Every Day Cigarettes 0.5 60.1 Started: 11/20/1963 Smokeless Tobacco: Never Alcohol Use Standard Drinks/Week Comments Yes 0 (1 standard drink = 0.6 oz pur e alcohol) Sex and Gender Information Value Date Recorded Sex Assigned at Not on file Legal Sex Male 5:03 PM EST Gender Identity Not on file Sexual Orientation Not on file documented as of this encounter Plan of Treatment Upcoming Encounters Date Type Department Care Team (Late Contact Info) Description 05/21/2025 9:45 AM EDT Office Visit [facility] - [facility] [phone] Marek Polanco MD [address] [place] [address] 01/06/2026 10:30 AM EST Ancillary Procedure [facility] - [address] [facility] [address] [place] [address] documented as of this encounter Visit Diagnoses Not on filedocumented in this encounter Care Teams Criminal Defense Attorney Relationship Specialty Start Date End Date Marek Polanco MD [address] [place] [id number] PCP - General Internal Medicine 09/18/24 documented as of this encounter
--- OUTSIDE RECORDS SUMMARY | 2025-01-08 10:33 | XMS_ITS | Encounter Summary ---
Author Organization [facility] Address [address] [place] [address] Care Team Providers Care Seat Nailer Name Role Phone Marek Polanco MD Primary Care Provider [phone] Encounter Details Date Type Department Care Team (Latest Contact Info) Description 01/01/2025 2:00 PM EST Ancillary Procedure [facility] - [facility] [address] [facility] [address] [place] [address] Encounter for adjustment or management of cardiac device Social History Tobacco Use Types Packs/Day Years [...] AM EDT Office Visit Internal Medicine - [address] [phone] Marek Polanco MD [address] [place] [id number] 01/06/2026 10:30 AM EST Ancillary Procedure [facility] - [address] [place] [address] Pending Results Name Type Priority Associated Diagnoses Date /Time Cardiac device check - In Clinic Implantable Cardiac Device Routine Encounter for adjustment or management of cardiac device 01/01/2025 1:37 PM EST Scheduled Orders Name Type Priority Associated Diagnoses Order Schedule Cardiac device check - In Clinic Implantable Cardiac Device Routine Encounter for adjustment or management of cardiac device 1 Occurrences starting 09/05/2024 until 09/05/2026 documented as of this encounter Visit Diagnoses Diagnosis Encounter for adjustment or management of cardiac device Encounter for adjustment or management of cardiac device documented in this encounter Care Teams Seat Nailer Relationship Specialty Start Date End Date Marek Polanco MD [address] [place] [phone] PCP - General Internal Medicine 09/18/24 documented as of this encounter
--- OUTSIDE RECORDS SUMMARY | 2025-01-08 10:33 | XMS_ITS | Encounter Summary ---
Author Organization [facility] Address [address] [place] [address] Care Team Providers Care Screener And Blender Name Role Phone Marek Polanco MD Primary Care Provider Encounter Details Date Type Department Care Team (Late st Contact Info) Description 12/31/[address] [facility] - [facility] [address] [facility] [address] [place] [address] Marcio Coronado MD [address] [place], [place] [phone] Social History Tobacco Use Types Packs/Day Years [...] on file documented as of this encounter Progress Notes * Adrien Daksha - 12/31/2024 4:47 PM EST Spoke to son on the phone, he is going to check that his father's monitor is still plugged in and they have an appointment tomorrow where they will reset his implanted device to reboot the system since its been over 90 days from his last transmission. documented in this encounter Plan of Treatment Upcoming Encounters Date Type Department Care Team (Late st Contact Info) Description 05/21/2025 9:45 AM EDT Office Visit Internal Medicine - [address] [phone] Marek Polanco MD [address] [place] [phone] 01/06/2026 10:30 AM EST Ancillary Procedure [facility] - [facility] [address] [facility] [address] [place] [address] documented as of this encounter Visit Diagnoses Not on filedocumented in this encounter Care Teams Screener And Blender Relationship Specialty Start Date End Date Marek Polanco MD [address] [place] [phone] PCP - General Internal Medicine 09/18/24 documented as of this encounter
== END ==
LOC: HO.SL 10:04
PROVIDERS: PCP Internal Medicine; Visit Provider Psychiatry & Neurology Neurology
DX: G47.10 Hypersomnia, unspecified (principal); R06.83 Snoring
CPT/HCPCS: 95806

== ENCOUNTER 2025-03-14 12:58 | Outpatient (AMB) | payer OTHER, SELFPAY ==
--- NOTE | 2025-03-14 13:00 | MHC.OFFVIS ---
Vital Signs 03/14/25 13:01 Height 6 ft 1 in Weight 209 lb 6 oz BMI 27.6 BP 126/74 Blood Pressure Location Rt brachial Position Sitting Pulse 74 Pulse Source Pulse Oximeter Pulse Oximetry (%) 95 Oxygen Delivery Method Room Air Intake Visit Reasons: Follow Up Intake Note: Patient presents follow up Dementia/ABDIRASHID. HST in chart/VNA notes in chart. Accompanied by: Son Allergies No Known Allergies Allergy (Verified 09/16/24 10:55) HPI Comments Details: 79 y/o male patient presents for follow up of dementia, seizure and ABDIRASHID on CPAP. His son Martín is here with him today to help with history, and denies seizures and or falls since his last visit. 01/2025 HST c/w AHI 42 and obstructive apnea index of 42, with Oxygenation desaturation to 81%. Now he sleeps well with Trazadone, as he had insomnia a few weeks ago and was wandering into rooms at night. The CPAP RX was sent and Martín has picked up the cpap machine and is now educating the staff at the [facility] living facility on adhering to nightly use and ensuring Maksim sleeps with the CPAP nightly for 4 hours at a minimum for best health outcomes. Pt had worsening of cognition when he had a UTI 9 months ago, since than he has been improving, he eats a good diet, despite having some difficulty chewing his food, he is able to eat a soft food diet, no complaints of incontinence or constipation today. Hearing and vision are good at baseline, denies headaches and or RLS. He walks as the weather permits w/o an assisted device, and says his gait is steady. 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 He was having 2-3 falls annually, and his psychiatrist started to taper him off of some medications. His medications are administered by the staff, he takes memantine 28mg daily and seroquel 25mg daily. His son is also overseeing medication administration as he is only 20 min away from the [facility] facility and visits 2x a week. He has some weakness in his legs and would like to go to PT 2-3 x a week. 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 [facility] Medical History Obstructive sleep apnea of adult Hypersomnia Snoring Subdural hematoma Bladder cancer COPD (chronic obstructive pulmonary disease) Surgical History Hx of colonoscopy History of back surgery Hx of cardiac catheterization Hx of craniotomy Hx of tonsillectomy Family History Father [place] (myocardial infarction) Mother No problems noted. Social History Household Members: Spouse Alcohol intake: former Patient Tobacco Use Status: Former Tobacco user Review of Systems ENT Reports Normal hearing present Neuro Reports Normal hearing present Physical Exam Vital Signs: Last Vital Signs Pulse 74 03/14/25 13:01 BP 126/74 03/14/25 13:01 Pulse Ox 95 03/14/25 13:01 Oxygen Delivery Method Room Air 03/14/25 13:01 BMI result Body Mass Index 27.6 Const General: cooperative and no acute distress Nutritional Appearance: average body habitus Orientation/consciousness: patient oriented x3 Neck Neck: Yes full ROM and Yes supple Resp Effort & Inspection: normal respiratory effort, able to speak in complete sentences and Actively coughing Neuro Other: gait- off balance - stooped posture involuntary movements in distal UE bilaterally, oral and lingual movements, voice tremors with hypophonia. General: patient oriented x3 and moves all extremities Cranial nerves: Yes Bilaterally intact EOM present, Yes Normal facial strength present, Yes Midline tongue present, Yes Symmetric palate elevation present, Yes Normal hearing present, Yes Ability to bilaterally rotate head present and Yes Ability to bilaterally elevate shoulders present Cognition (Neuro): normal cognition Gait exam (Neuro): Normal gait present (slightly stoop, good stride and steady gait. ) Motor exam (neuro): Pronator motor function not present, Abnormal motor strength present (3/5 Upper Extremity Bilateral), Tremors during motor activity present, Abnormal muscle tone present, Motor abnormalites present and Other motor observations present (bilateral hands moderate action tremor. ) Deep tendon reflexes (DTR's): Right triceps reflex intensity grade: 2+, Left triceps reflex intensity grade: 2+, Rt Biceps (C5, C6): 2+, Left biceps reflex intensity grade: 2+, Right brachioradialis reflex intensity grade: 2+, Left brachioradialis reflex intensity grade: 2+, Right patellar reflex intensity grade: 2+ and Left patellar reflex intensity grade: 2+ Coordination: [id number] test normal (overshoot/ undershoot dysmetric movements) Psych Appearance: grossly normal Mental Status: mental status grossly normal Affect: normal affect Attitude: cooperative Results Reviewed Results Reviewed: CT/CT head/brain wo IV con IMPRESSION: Left-sided craniotomy with underlying encephalomalacia/gliosis in the left anterior temporal lobe. 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 Extensive white matter hypodensity is nonspecific and may represent severe chronic microvascular ischemic change. No acute intracranial hemorrhage or territorial loss of roy-white differentiation. HST 01/2025 c/w ABDIRASHID AHI 41 and obstructive apnea index of 42, oxygen desaturation to 81%. Assessment & Plan Assessment & Plan (1) Frequent falls: Code(s): R29.6 - Repeated falls Category: Medical (2) Dementia: Comment: Vascular, mild to moderate Code(s): F03.90 - Unspecified dementia, unspecified severity, without behavioral disturbance, psychotic disturbance, mood disturbance, and anxiety Category: Medical Qualifiers: Dementia type: vascular dementia Dementia severity: mild Dementia behavioral or psychological symptom: without behavioral, psychotic, or mood disturbance or anxiety Qualified Code(s): F01.A0 - Vascular dementia, mild, without behavioral disturbance, psychotic disturbance, mood disturbance, and anxiety (3) Seizure: Code(s): R56.9 - Unspecified convulsions Category: Medical (4) Obstructive sleep apnea of adult: Code(s): G47.33 - Obstructive sleep apnea (adult) (pediatric) Category: Medical Plan: not on CPAP Plan Continue to take memantine ER 28 mg daily for dementia. Continue phenytoin 400 mg q HS for seizure as patient experiences good clinical effect. Advised patient to try melatonin 3 mg qHS. Home PT as determined by patient and son Maksim. Orders: Orders PT Evaluation and Treatment 03/14/25 R29.6 - Repeated falls Patient Instructions: Patient Education: Use CPAP therapy as directed accordingly for a minimum of 4-6 hours per night. Each sleep cycle is 90 min. N1, N2, N3 and REM, thus cycling through these 4 phases reaching REM allows the Hypothalamus signalling to the Pituitary gland to release GNRH, GHRH, TSH, CRH etc. for growth tissue repair, mood and immunity. If you experience any difficulties with your machine reach out to your cpap provider, and or C for replacements, adjustments of masks, or pressure settings. Download the [employer] peace to monitor your own sleep cycle nightly. Write down your questions and lets discuss them. Wash the mask daily, replace hoses, change filters, fill your reservoir with distilled water as needed. Coding Level of Care Code Est Pt Level 4 (21222) Diagnoses Frequent falls R29.6 Mild vascular dementia without behavioral disturbance, psychotic disturbance, mood disturbance, or anxiety F01.A0 Dementia type: vascular dementia Dementia severity: mild Dementia behavioral or psychological symptom: without behavioral, psychotic, or mood disturbance or anxiety Seizure R56.9 Obstructive sleep apnea of adult G47.33 Time Spent (min) 30 Comment Patient Education pathophysiology.
[2025-03-14 13:01] VITALS: BP 126/74; PULSE 74; O2SAT 95; BMI 27.6
--- OUTSIDE RECORDS SUMMARY | 2025-03-14 13:42 | XMS_ITS | Clinical Summary ---
Author Organization [facility] [employer] Address [address] [place] [address] Phone Care Team Providers Care Commercial Escrow Assistant Name Role Phone Marek Polanco MD Primary Care Provider [phone] Allergies No known active allergies Medications melatonin 3 mg tablet Take 1 tablet (3 mg total) by mouth at bedtime. Active QUEtiapine (SEROquel) 50 mg tablet Take 1 tablet (50 mg total) by mouth at bedtime. 05/13/20 24 Active memantine (NAMENDA XR) 28 mg extended release capsule Take 1 capsule (28 mg total) by mouth 1 (one) time each day. 12/15/19 21 Active aspirin 81 mg EC tablet Take 1 tablet (81 mg total) by mouth 1 (one) time each day. 05/13/20 24 Active phenytoin (DILANTIN) 100 mg ER capsule Take 4 capsules (400 mg total) by mouth. 10/01/20 15 Active multivitamin tablet TAKE 1 TABLET BY MOUTH DAILY. 28 tablet 5 10/16/20 24 Active venlafaxine HCl (VENLAFAXINE ORAL) Take by mouth. Active venlafaxine XR (EFFEXOR-XR) 150 mg 24 hr capsule TAKE (1) CAPSULE BY MOUTH TWICE DAILY 60 capsule 2 12/10/19 25 Active metoprolol succinate (TOPROL-XL) 25 mg 24 hr tablet Do not crush or chew. TAKE 1 TABLET BY MOUTH DAILY IN ADDITION TO THE 50MG TABLET FOR A TOTAL DAILY DOSE OF 75MG IN THE EVENING 90 tablet 1 02/05/20 25 Active metoprolol succinate (TOPROL-XL) 50 mg 24 hr tablet Do not crush or chew. TAKE 1 TABLET BY MOUTH DAILY IN ADDITION TO THE 25MG TABLET FOR A TOTAL DAILY DOSE OF 75MG IN THE EVENING 90 tablet 1 02/05/20 25 Active atorvastatin (LIPITOR) 80 mg tablet Take 1 tablet (80 mg total) by mouth at bedtime. at bedtime 90 tablet 1 02/05/20 25 Active melatonin 5 mg tablet TAKE 1 TABLET BY MOUTH DAILY EVERY EVENING. 30 tablet 5 02/06/20 25 Active tamsulosin (FLOMAX) 0.4 mg 24 hr capsule TAKE 2 CAPSULES BY MOUTH ONCE DAILY AT BEDTIME. TAKE 30 MINUTES AFTER THE SAME MEAL EVERY DAY. 60 capsule 5 02/06/20 25 Active folic acid (FOLVITE) 1 mg tablet Take 1 tablet (1,000 mcg total) by mouth 1 (one) time each day. 30 tablet 5 02/26/20 25 Active sacubitriL-cesar sartan (Entresto) 49-51 mg per tablet Take 1 tablet by mouth 2 (two) times a day. 180 tablet 1 02/28/20 25 Active lisinopriL (PRINIVIL,ZEST RIL) 20 mg tablet Take 1 tablet (20 mg total) by mouth 1 (one) time each day. 90 tablet 1 02/05/20 25 025 Discontinued folic acid (FOLVITE) 1 mg tablet TAKE 1 TABLET BY MOUTH DAILY. 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 V24, [facility] V28) 08/15/2017 Urge incontinence 07/10/2017 ABDIRASHID (obstructive sleep apnea) 12/20/2016 Major depressive disorder, r ecurrent episode, mild ([facility] V24) 06/09/2016 AICD (automatic cardioverter/defibrillator) pres ent 10/31/2015 Ventricular tachyarrhythmia ([facility] V24, [facility] V28) 10/20/2015 Multiple thyroid nodules 12/03/2014 Tracheal nodule 12/03/2014 Overview (10/08/2024): 6 mm subglottic polypoid lesion seen on 10/2014 CT scan - will follow with 6 month scan Hyperlipidemia 12/01/2014 Vitamin D deficiency 12/01/2014 Pulmonary nodules 11/21/2014 AVM (arteriovenous malformation) brain 4 Overview (10/08/2024): Left temporal, repaired by craniotomy 1992 Old MS (myocardial infarction) 11/03/2014 Overview (10/08/2024): S/p LAD stenting 2002 Hypertension 11/03/2014 Overview (10/08/2024): Dr. Underwood Seizure disorder ([facility] V24, [facility] V28) 10/20 Overview (10/08/2024): S/p craniotomy; twice tried to wean off dilantin but not successful Managed by PCP after several years. PTSD (post-traumatic stress disorder) 11/03/2014 Overview (10/08/2024): Venlafaxine, Seroquel for sleep (staying asleep) Encounters Date Type Department Care Team Description 03/04/2025 2:25 PM EDT Ancillary Procedure [facility] - [address] [place] [address] 02/22/2025 12:30 AM EDT [facility] [address] [place] [address] 02/19/2025 9:40 AM EDT Office Visit [facility] - [address] [place] [address] Reentta Anderson NP Hypertension, unspecified type (Primary Dx) 02/10/2025 9:25 PM EDT Ancillary Procedure [facility] - [address] [place] [address] 01/31/2025 Telephone [facility] - [address] [place] [address] Marcio Coronado MD 01/08/2025 10:15 PM EST Ancillary Procedure [facility] - [address] [place] [address] 01/01/2025 2:00 PM EST Ancillary Procedure [facility] - [address] [place] [address] Encounter for adjustment or management of cardiac device 12/31/2024 Telephone [facility] - [address] [place] [address] Marcio Coronado MD 12/31/2024 Telephone [facility] - [address] [place] [address] Marcio Coronado MD from Last 3 Months Immunizations Name Administration [...] Site/Laterality Comments OTHER SURGICAL HISTORY 11/20/1992 PROCEDURE: [place] CRANIOT TEMPORAL LOBE W/O ELECTROCORTICOGRAPHY; COMMENT: arteriovenous [...] deficiency COPD (chronic obstructive pu lmonary disease) ([facility] V24, [facility] V28) 12/01/2014 DX:COPD (chronic o bstructive pulmonary disease) ([facility]) History of adenomatous polyp of colon 12/01/2014 DX:History of adenomatous polyp of colon; COMMENT: Multiple adenomas in 2001/ 5 yr plan History of hematuria 12/01/2014 DX:History of hematuria; COMMENT: Neg workup 2008 including bladder bx/ [facility] 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 ([facility] V24, [facility] V28) 11/10/2015 DX: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 Family History Medical History Relation Name Comments Heart attack Father in 80s Relation Name Status Comments Brother Father Mother Sister Alive Social History Tobacco Use Types Packs/Day Years Used Date Smoking Tobacco: Former Cigarettes 0.5 60.3 S tarted: 11/20/1964 Smokeless Tobacco: Never Tobacco Cessation:Counseling Given: Not Answered Alcohol Use Standard Drinks/Week Comments Yes 0 (1 standard drink = 0.6 oz pur e alcohol) Sex and Gender Information Value Date Recorded Sex Assigned at Not on file Legal Sex Male 5:03 PM EST Gender Identity Not on file Sexual Orientation Not on file Obstetrics History Last Filed Vital Signs Vital Sign Reading Time Taken Comments Blood Pressure 140/60 02/19/2025 9:53 AM EDT Pulse 61 02/19/2025 9:53 AM EDT Temperature - - Respiratory Rate - - Oxygen Saturation 98% 02/19/2025 9:53 AM EDT Inhaled Oxygen Concentration - - Weight 95.7 kg (211 lb) 02/19/2025 9:53 AM EDT Height 185.4 cm (6' 1 ) 02/19/2025 9:53 AM EDT Body Mass Index 27.84 02/19/2025 9:53 AM EDT Plan of Treatment Upcoming Encounters Date Type Department Care Team (Late st Contact Info) Description 05/21/2025 9:45 AM EDT Office Visit Internal Medicine - [address] [address] Marek Polanco MD [address] [place] [address] 08/27/2025 9:40 AM EDT Office Visit [facility] - [address] [facility] [address] [place] [phone] Renetta Anderson NP [address] [facility] [address] [place] [address] 01/06/2026 10:30 AM EST Ancillary Procedure [facility] - [facility] [address] [facility] [address] [place] [phone] Health Maintenance Due Date Last Done Comments Zoster Vaccines (1 of 2) 1964 RSV Immunization Adult Patients (1 - 1-dose 75+ series) 2021 Colorectal Cancer Screening: Colonoscopy 10/29/2022 04/25/2015 Hepatitis C Screening 10/29/2022 Social Influencers of Health Screening 10/29/2022 COVID-19 Vaccine ( season) 2024 09/14/2023, 08/23/2022, 03/30/2022, Additional history exists DTaP,Tdap,and Td Vaccines (2 - Td or Tdap) 10/20/2024 10/20/2014 Depression Screening 02/22/2025 02/23/2024 Falls Risk Assessment 02/22/2025 02/23/2024 Medicare Annual Wellness Visit 02/22/2025 02/23/2024 Influenza Vaccine (Season Ended) 2025 08/24/2023, 08/23/2022, 11/09/2021, Additional history exists Hypertension/CHF/CAD Annual BMP Blood Test 11/21/2025 11/21/2024 Cholesterol Screening (Lipid Panel) 11/21/2029 11/21/2024, 02/23/2024 Pneumococcal Vaccine: 50+ Years Completed 12/16/2020, 11/10/2015, 09/12/2012 Lung Cancer Screening (Low Dose CT) Discontinued 05/05/2022, 05/03/2021 HIB Vaccines Aged Out No longer eligi [...] age to complete this topic Meningococcal B Vaccine Aged Out No l onger eligible based on patient's age to complete this topic RSV Immunization Patients Under 20 months Aged Out No longer eligible based on patient's age to complete this topic Varicella Vaccines Aged Out No longer eligible based on patient's age to complete this topic Medical Devices Implanted Type Area Picture Copyist Device Identifier Shelf Expiration Date Model / Serial / Lot [employer] Itrevia 7 Vr-T Dx [id number] Implanted:10/2015 by Marcio Coronado MD (Quantity not on file) Cardiac ICD Left: Chest [employer] ITREVIA 7 VR-T DX / [id number] / Procedures Procedure Name Priority Date/Time Associated Diagnosis Comments CARDIAC DEVICE CHECK- REMOTE- MURJ Routine 03/04/2025 2:23 PM EDT CARDIAC DEVICE CHECK- REMOTE- MURJ Routine 02/22/2025 12:28 AM EDT ECG 12-LEAD Routine 02/19/2025 10:42 AM EDT Hypertension, unspecified type CARDIAC DEVICE CHECK- REMOTE- MURJ Routine 02/10/2025 9:21 PM EDT CARDIAC DEVICE CHECK- REMOTE- MURJ Routine 01/08/2025 10:14 PM EST CARDIAC DEVICE CHECK- IN CLINIC- MURJ Routine 01/01/2025 1:37 PM EST Encounter for adjustment or management of cardiac device BASIC METABOLIC PANEL Routine 11/21/2024 10:15 AM EST Primary hypertension LIPID PANEL WITH REFLEX TO DIRECT LDL Routine 11/21/2024 10:15 AM EST Primary hypertension HM DEPRESSION SCREENING Routine 02/23/2024 HM FALLS RISK ASSESSMENT Routine 02/23/2024 CT LUNG SCREENING LOW DOSE Routine 05/05/2022 4:00 PM EDT Personal history of nicotine dependence HM COLONOSCOPY Routine 04/25/2015 from Last 3 Months or Most Recently Relevant to Health Maintenance Results * Cardiac device check - Remote- MURJ (03/04/2025 2:23 PM EDT) Only the most recent of4 resultswithin the time period is included. Date Time Interrogation Session [id number] CV DEVICE CHECK Type Interrogation Session RemoteScheduled CV DEVICE CHECK Implantable Pulse Generator Picture Copyist BIO CV DEVICE CHECK Implantable Pulse Generator Type ICD CV DEVICE CHECK Implantable Pulse Generator Model Itrevia 7 VR-T DX CV DEVICE CHECK Implantable Pulse Generator Serial Number [id number] CV DEVICE CHECK Implantable Pulse Generator Implant Date 20151001 CV DEVICE CHECK Battery Remaining Percentage 13.00 CV DEVICE CHECK Battery Voltage 2.940 CV D EVICE CHECK Battery CEPHALOMETRIC ANALYST Trigger 2.850 CV DEVICE CHECK Battery Status Middle of Service CV DEVICE CHECK Capacitor Charge Time 12.000 CV DEVICE CHECK Ebenezer Statistic RV Percent Paced 1.00 CV DEVICE CHECK Atrial Tachy Statistic AT/AF [place] Percent 0.00 CV DEVICE CHECK Lead Channel Sensing Intrinsic Amplitude 2.200 CV DEVICE CHECK Lead Channel Setting Sensing Sensitivity 0.40 CV DEVICE CHECK Lead Channel RA Pacing Threshold Date 2025-03-01 CV DEVICE CHECK Lead Channel Sensing Intrinsic Amplitude 20.000 CV DEVICE CHECK Lead Channel Setting Sensing Sensitivity 0.80 CV DEVICE CHECK Lead Channel Impedance Value 650 CV DEVICE CHECK Lead Channel Pacing Threshold Amplitude 0.500 CV DEVICE CHECK Lead Channel Pacing Threshold Pulse Width 0.4 CV DEVICE CHECK Lead Channel RV Pacing Threshold Date 2025-03-01 CV DEVICE CHECK Lead Channel Setting Pacing Amplitude 1.500 CV DEVICE CHECK Lead Channel Setting Pacing Pulse Width 0.4 CV DEVICE CHECK Ebenezer Setting Mode (NBG Code) VVI CV DEVICE CHECK Ebenezer Setting Lower Rate Limit 40 CV DEVICE CHECK Therapy Statistic Recent Shocks Delivered 0 CV DEVICE CHECK Therapy Statistic Recent Shocks Aborted 0 CV DEVICE CHECK Therapy Statistic Recent ATP Delivered 0 CV DEVICE CHECK Shock Measured Impedance 76 CV DEVICE CHECK Zone Setting Type Category Zone_ATAF CV DEVICE CHECK Rate 200 CV DEVICE CHECK Zone Setting Status Monitor CV DEVICE CHECK Zone ID 7 CV DEVICE CHECK Zone Setting Type Category VF CV DEVICE CHECK Rate 200 CV DEVICE CHECK Therapies Burst,30.0J,40.0J, 40.0J x 6 CV DEVICE CHECK Zone Setting Status On CV DEVICE CHECK Zone ID 8 CV DEVICE CHECK Zone Setting Type Category VT CV DEVICE CHECK Rate 150 CV DEVICE CHECK Zone Setting Status Monitor CV DEVICE CHECK Zone ID 9 CV DEVICE CHECK Zone Setting Type Category VT CV DEVICE CHECK Zone Setting Status Inactive CV DEVICE CHECK Zone ID 10 CV DEVICE CHECK Date of Service 2025-04-09 CV DEVICE CHECK Anatomical Region Laterality Modality Device Interroga tion 03/01/2025 1:44 AM EDT Impressions 03/04/2025 10:44 AM EDT Heart Failure Diagnostic: Stable * Heart failure diagnostics assessed through the device * Status: Stable * No overt HF present Narrative Procedure Note Marcio Coronado MD - 03/04/2025 IMPRESSION: Heart Failure Diagnostic: Stable * Heart failure diagnostics assessed through the device * Status: Stable * No overt HF present us Marcio Coronado MD CV IMPLANTABLE CARDIAC DEVICE PROCEDURES Final Result * ECG 12 lead (02/19/2025 10:42 AM EDT) Ventricular Rate ECG 60 BPM GEMUSE Atrial Rate 60 BPM GEMUSE P-R Interval 204 ms GEMUSE QRS Duration 126 ms GEMUSE Q-T Interval 450 ms GEMUSE QTc 450 ms GEMUSE P Wave [place] -29 degrees GEMUSE R [place] -16 degrees GEMUSE T [place] 95 degrees GEMUSE ECG Interpretation Normal sinus rhythm Non-specific intra-ventricul ar conduction block Cannot rule out Anteroseptal infarct , age undetermined No previous ECGs available Confirmed by UNA RODNEY ([id number]) on 03/09/2025 2:43:18 PM GEMUSE 02/19/2025 10:0 3 AM EDT 03/09/2025 2:43 PM EDT us Renetta Anderson NP ECG ORDERABLES Edited Resul t - Final GEMUSE * CARDIAC DEVICE CHECK- IN CLINIC- MUR (01/01/2025 1:37 PM EST) Date Time Interrogation Session [id number] CV DEVICE CHECK Implantable Pulse Generator Picture Copyist BIO CV DEVICE CHECK Implantable Pulse Generator Type ICD CV DEVICE CHECK Implantable Pulse Generator Model Itrevia 7 VR-T DX CV DEVICE CHECK Implantable Pulse Generator Serial Number [id number] CV DEVICE CHECK Implantable Pulse Generator Implant Date 20151001 CV DEVICE CHECK Battery Remaining Percentage 14.00 CV DEVICE CHECK Battery Voltage 2.940 CV D EVICE CHECK Battery Status Middle of Service CV DEVICE CHECK Ebenezer Statistic RV Percent Paced 1.00 CV DEVICE CHECK Atrial Tachy Statistic AT/AF [place] Percent 0.00 CV DEVICE CHECK Lead Channel Sensing Intrinsic Amplitude 1.500 CV DEVICE CHECK Lead Channel Setting Sensing Sensitivity 0.40 CV DEVICE CHECK Lead Channel Sensing Intrinsic Amplitude 24.100 CV DEVICE CHECK Lead Channel Setting Sensing Sensitivity 0.80 CV DEVICE CHECK Lead Channel Impedance Value 665 CV DEVICE CHECK Lead Channel Pacing Threshold Amplitude 0.500 CV DEVICE CHECK Lead Channel Pacing Threshold Pulse Width 0.4 CV DEVICE CHECK Lead Channel Setting Pacing Amplitude 1.500 CV DEVICE CHECK Lead Channel Setting Pacing Pulse Width 0.4 CV DEVICE CHECK Ebenezer Setting Mode (NBG Code) VVI CV DEVICE CHECK Ebenezer Setting Lower Rate Limit 40 CV DEVICE CHECK Therapy Statistic Recent Shocks Delivered 0 CV DEVICE CHECK Therapy Statistic Recent ATP Delivered 0 CV DEVICE CHECK Shock Measured Impedance 78 CV DEVICE CHECK Zone Setting Type Category Zone_VT CV DEVICE CHECK Rate 150 CV DEVICE CHECK Zone Setting Status Monitor CV DEVICE CHECK Zone ID 1 CV DEVICE CHECK Zone Setting Type Category Zone_VF CV DEVICE CHECK Rate 200 CV DEVICE CHECK Therapies Burst, 30J, 40J, 40J x 6 CV DEVICE CHECK Zone Setting Status On CV DEVICE CHECK Zone ID 2 CV DEVICE CHECK Date of Service 2025-01-01 CV DEVICE CHECK Anatomical Region Laterality Modality Device Interroga tion 01/01/2025 Impressions 01/08/2025 1:44 PM EST Normal In-Office: No Events * Normal Device Function * Alerts or events: None * Battery: Battery is at 14%, 14% * Sensing, impedance and thresholds reviewed and tested * Presenting Rhythm: - VS 60's * Heart Rate Histograms reviewed * Pacing and Detection Parameters were evaluated Heart Failure Diagnostic: Stable * Heart failure diagnostics assessed through the device * Status: Stable * No overt HF present Narrative Procedure Note Marcio Coronado MD - 01/08/2025 IMPRESSION: Normal In-Office: No Events * Normal Device Function * Alerts or events: None * Battery: Battery is at 14%, 14% * Sensing, impedance and thresholds reviewed and tested * Presenting Rhythm: - VS 60's * Heart Rate Histograms reviewed * Pacing and Detection Parameters were evaluated Heart Failure Diagnostic: Stable * Heart failure diagnostics assessed through the device * Status: Stable * No overt HF present us Order Referral Cardiovascular CV IMPLANTABLE CAR DIAC DEVICE PROCEDURES Final Result * Lipid panel with reflex to direct LDL (11/21/2024 10:15 AM EST) Cholesterol 139 0 - 200 mg/dL LAB CHEMISTRY METHOD 11/21/2024 3:08 PM [facility] Triglycerides 97 0 - 150 mg/dL LAB CHEMISTRY METHOD 11/21/2024 3:08 PM [facility] HDL 60 >=40 mg/dL LAB CHEMISTRY METHOD 11/21/2024 3:08 PM [facility] LDL Calculated 60 0 - 100 mg/dL LAB CHEMISTRY METHOD 11/21/2024 3:08 PM [facility] VLDL Cholesterol [place] 19.4 mg/dL LAB CHEMISTRY METHOD 11/21/2024 3:08 PM [facility] Non HDL Chol. (LDL+VLDL) 79 <145 mg/dL LAB CHEMISTRY METHOD 11/21/2024 3:08 PM [facility] Chol/HDL Ratio 2.3 0.0 - 4.4 LAB CHEMISTRY METHOD 11/21/2024 3:08 PM [facility] Blood Venous blood specimen / Unknown Venipuncture / Unknown 11/21/2024 10:15 AM EST 11/21/2024 10:15 AM EST us Marek Polanco MD LAB BLOOD ORDERABLES Final Res ult [facility] [address] [place] [address], * (ABNORMAL) Basic metabolic panel (11/21/2024 10:15 AM EST) Sodium 143 133 - 145 mmol/L LAB CHEMISTRY METHOD 11/21/2024 3:07 PM EST [facility] Potassium 4.2 3.5 - 5.5 mmol/L LAB CHEMISTRY METHOD 11/21/2024 3:07 PM [facility] Chloride 109 96 - 110 mmol/L LAB CHEMISTRY METHOD 11/21/2024 3:07 PM [facility] CO2 30 21 - 32 mmol/L LAB CHEMISTRY METHOD 11/21/2024 3:07 PM [facility] Anion Gap 4 3 - 11 LAB CHEMISTRY METHOD 11/21/2024 3:07 PM [facility] Glucose 116(H) 70 - 100 mg/dL LAB CHEMISTRY METHOD 11/21/2024 3:07 PM [facility] BUN 18 5 - 25 mg/dL LAB CHEMISTRY METHOD 11/21/2024 3:07 PM [facility] Creatinine 0.74 0.70 - 1.30 mg/dL LAB CHEMISTRY METHOD 11/21/2024 3:07 PM [facility] eGFR 93 >=60 mL/min/1. 73m2 LAB CHEMISTRY METHOD 11/21/2024 3:07 PM [facility] Comment:Calculation based on the??Chronic Kidney Disease Epidemiology Collaboration (CKD-EPI) equation refit??without adjustment for race. BUN/Creatinine Ratio 24.3 LAB CHEMISTRY METHOD 11/21/2024 3:07 PM [facility] Calcium 9.2 8.5 - 10.5 mg/dL LAB CHEMISTRY METHOD 11/21/2024 3:07 PM [facility] Blood Venous blood specimen / Unknown Venipuncture / Unknown 11/21/2024 10:15 AM EST 11/21/2024 10:15 AM EST us Marek Polanco MD LAB BLOOD ORDERABLES Final Res ult [facility] [address] [place] [address], * Falls Risk Assessment (02/23/2024) Falls Risk Assessment Abstrated us Historical Provider HEALTH MAINTENANCE Final Result * Depression Screening (02/23/2024) Depression Screening Abstrated Historical Provider HEALTH MAINTENANCE Final Result * CT LUNG SCREENING LOW DOSE (05/05/2022 4:00 PM EDT) Anatomical Region Laterality Modality Computed Tomogra phy 05/05/2022 2:36 PM EDT Narrative 05/05/2022 4:00 PM EDT [facility] Diagnostic Imaging Department [address] [place] [address] Patient: ??STEPHANIE BELTRAN ?/Age/Sex: 1945 - 76 - M Unit#: ??[id number] ? Location/Status: ??SPDICATLS/REG CLI ? Mnemonic/Ordering Site: ??CTLUNGLD/SPCT Ordering Physician: ??MOLLY MICHELLE MD CT Lung Screening Low Dose - 05/05/22 - 1506 HISTORY: Current smoker, 84 pack year total, urinary bladder carcinoma. COMMENTS: Noncontrast Chest CT examination includes axial imaging from the lung apices through the hemidiaphragms supplemented with coronal and sagittal reformatted images utilizing low-dose screening technique (GE, 1.5 [...] Procedure Note Ginger Gonzalez, DO - 11/09/2022 [facility] Diagnostic Imaging Department [address] [place] [address] Patient: STEPHANIE BELTRAN Renea Ernandez./Age/Sex: 1945 - 76 - M Unit#: [id number] Location/Status: SPDICATLS/REG CLI Mnemonic[facility] Ordering Physician: MOLLY MICHELLE MD CT Lung Screening Low Dose - 05/05/22 - 5246 HISTORY: Current smoker, 84 pack year total, urinary bladder carcinoma. COMMENTS: Noncontrast Chest CT examination includes axial imaging from the lungapices through the hemidiaphragms supplemented with coronal and sagittalreformatted images utilizing low-dose screening technique ([employer], 1.5 DLP (mGy-cm), CT utilizing dose reduction [...] 05/05/22 1549 Sign date/Time: 05/05/22 1600 Molly Michelle MD IMG CT PROCEDURES Final Result * Colonoscopy (04/25/2015) Colonoscopy No Interpretatio n, Abstrated Anatomical Region Laterality Modality Other Historical Provider HEALTH MAINTENANCE Final Result from Last 3 Months or Most Recently Relevant to Health Maintenance Insurance [employer] [place] [employer] Advance Directives Documents on File Type Date Recorded Patient Internal Revenue Agent Expl anation Health Care Decision (hx) 12/08/2017 [...] (hx) 11/07/2017 AD TELLO DIRECTIVE Care Teams Commercial Escrow Assistant Relationship Specialty Start Date End Date Marek Polanco MD [address] [place] [id number] PCP - General Internal Medicine 09/18/24
== END 2025-03-14 13:55 | disposition home or self-care (01) ==
LOC: HO.HSMS 12:59
PROVIDERS: PCP Internal Medicine; Visit Provider Physician Assistant Medical
DX: R29.6 Repeated falls (principal); F01.A0 Vascular dementia, mild, without behavioral disturbance, psychotic disturbance, mood disturbance, and anxiety; R56.9 Unspecified convulsions; G47.33 Obstructive sleep apnea (adult) (pediatric)
CPT/HCPCS: 99214

== ENCOUNTER → 2025-03-14 12:58 | Outpatient (BNVA) | payer OTHER, SELFPAY | PROVIDERS: PCP Internal Medicine; Visit Provider Physician Assistant Medical ==